=== PATIENT | male | born 1995 | race African-American/Black ===

== ENCOUNTER 2017-12-02 02:43 | Emergency (ER) | payer OTHER ==
[~2017-12-02] VITALS: Ht 177.8 cm; Wt 102.0 kg
[~2017-12-02 02:43] MED LIST: OXYC-360 PO
[2017-12-02 02:50] VITALS: BP 163/70; PULSE 92; RESP 18; TEMP 99.1
[2017-12-02] MEDS ORDERED: PANT20TA2 PO (04:52)
[2017-12-02] MEDS ORDERED: OMEP10CA PO (04:52)
[2017-12-02] MEDS ORDERED: SODIUM CHLOR 0.9% 1000 ML INJ 1,000 ML IV SCH (06:52)
[2017-12-02] MEDS ORDERED: METOCLOPRAMIDE HCL 10 MG/2 ML VIAL IV PUSH ONE (07:00)
[2017-12-02] MEDS ORDERED: PANTOPRAZOLE SODIUM 40 MG VIAL IVP ONE (07:00)
[2017-12-02] MEDS ORDERED: SODIUM CHLORIDE 0.9% FLUSH 10 ML FLUSH IV FLUSH PRN (07:00)
--- NOTE | 2017-12-02 07:21 | PD ---
HPI Chief Complaint: Abdominal Pain Time Seen by Provider: 06:52 Travel History International Travel<30 days: No Contact w/Intl Traveler<30days: No Traveled to known affect area: No History of Present Illness HPI 22-year-old male presents to the emergency department for complaint of generalized abdominal pain. Patient has history of GERD. Patient did take his proton pump inhibitor prior to arrival to the emergency department. Patient had nausea without vomiting. Patient has had constipation and no diarrhea. Patient denies any dietary indiscretion well water ingestion or foreign travel. Patient had some anorexia. Patient denies fever chills. Patient had no hematemesis coffee-ground emesis or melena or hematochezia. Patient states symptoms and present for approximately 4 hours. Patient states pain at onset was 10/10 in intensity. Currently pain is 4/10 in intensity. Patient denies previous similar symptoms. Patient denies other medical conditions. Patient denies having diabetes or asthma. No abdominal surgeries in the past patient is unable to identify exacerbating or alleviating factors. [facility] Past Medical History Narrative Medical GERD, HTN, tonsillectomy; nursing notes reviewed Medical History: Denies Significant Hx Cancer: No Developmental Delay: No Diabetes: No Glaucoma: No Hepatitis: No Hiatal Hernia: No Hypertension: Yes (1 YEAR AGO EPISODES IF HTN) Immunizations Current: Yes Thyroid Disease: No Past Surgical History Pacemaker: No Tonsillectomy: Yes Social History Alcohol Use: No Tobacco Use: No Substance Use: No Allergies-Medications (Allergen,Severity, Reaction): Coded Allergies: No Known Allergies (Verified Adverse Reaction, Unknown, 12/02/17) Reported Meds & Prescriptions Reported Meds & Active Scripts Active Reported Omeprazole 10 Mg Cap 10 Mg PO DAILY Pantoprazole (Pantoprazole Sodium) 20 Mg Tab 20 Mg PO DAILY Review of Systems Except as stated in HPI: all other systems reviewed are Neg General / Constitutional: No: Fever, Chills HENT: No: Congestion Cardiovascular: No: Chest Pain or Discomfort Respiratory: No: Shortness of Breath Gastrointestinal: Positive: Nausea, Abdominal Pain, Constipation, Loss of Appetite, No: Vomiting, Diarrhea Genitourinary: No: Frequency, Dysuria, Flank Pain Musculoskeletal: No: Myalgias, Arthralgias Skin: No Rash Neurologic: No: Weakness, Dizziness Psychiatric: No: Anxiety Hematologic/Lymphatic: No: Lymph Node Enlargement Physical Exam Narrative GENERAL: Well-developed well-nourished male no acute distress no respiratory distress SKIN: Warm and dry. HEAD: Normocephalic. EYES: No scleral icterus. No injection or drainage. NECK: Supple, trachea midline. No JVD or lymphadenopathy. CARDIOVASCULAR: Regular rate and rhythm without murmurs, gallops, or rubs. RESPIRATORY: Breath sounds equal bilaterally. No accessory muscle use. GASTROINTESTINAL: Abdomen soft, non-tender, nondistended. Soft nondistended no guarding no rebound; rectal exam deferred MUSCULOSKELETAL: No cyanosis, or edema. BACK: Nontender without obvious deformity. No CVA tenderness. Data Data Last Documented VS Vital Signs Date Time Temp Pulse Resp B/P (MAP) Pulse Ox O2 Delivery O2 Flow Rate FiO2 12/02/17 07:40 71 16 118/68 (85) 98 Room Air 12/02/17 02:50 99.1 Orders Orders Complete Blood Count With Diff (12/02/17 06:52) Comprehensive Metabolic Panel (12/02/17 06:52) Lipase (12/02/17 06:52) Urinalysis - C+S If Indicated (12/02/17 06:52) Abdomen, Flat & Upright (12/02/17 ) Iv Access Insert/Monitor (12/02/17 06:52) Ecg Monitoring (12/02/17 06:52) Oximetry (12/02/17 06:52) Pantoprazole Inj (Protonix Inj) (12/02/17 07:00) Sodium Chlor 0.9% 1000 Ml Inj (Ns 1000 M (12/02/17 06:52) Sodium Chloride 0.9% Flush (Ns Flush) (12/02/17 07:00) Metoclopramide Inj (Reglan Inj) (12/02/17 07:00) Hepatitis Profile (12/02/17 08:43) Labs Laboratory Tests Test 12/02/17 07:35 White Blood Count 7.2 TH/MM3 Red Blood Count 4.93 MIL/MM3 Hemoglobin 13.1 GM/DL Hematocrit 40.2 % Mean Corpuscular Volume 81.7 FL Mean Corpuscular Hemoglobin 26.6 PG Mean Corpuscular Hemoglobin Concent 32.6 % Red Cell Distribution Width 14.2 % Platelet Count 239 TH/MM3 Mean Platelet Volume 9.3 FL Neutrophils (%) (Auto) 83.7 % Lymphocytes (%) (Auto) 7.5 % Monocytes (%) (Auto) 7.8 % Eosinophils (%) (Auto) 0.6 % Basophils (%) (Auto) 0.4 % Neutrophils # (Auto) 6.0 TH/MM3 Lymphocytes # (Auto) 0.5 TH/MM3 Monocytes # (Auto) 0.6 TH/MM3 Eosinophils # (Auto) 0.0 TH/MM3 Basophils # (Auto) 0.0 TH/MM3 CBC Comment DIFF FINAL Differential Comment Urine Color YELLOW Urine Turbidity CLEAR Urine pH 6.5 Urine Specific [place] 1.011 Urine Protein NEG mg/dL Urine Glucose (UA) NEG mg/dL Urine Ketones NEG mg/dL Urine Occult Blood NEG Urine Nitrite NEG Urine Bilirubin NEG Urine Urobilinogen LESS THAN 2.0 MG/DL Urine Leukocyte Esterase NEG Urine RBC LESS THAN 1 /hpf Urine Mucus FEW /lpf Microscopic Urinalysis Comment CULT NOT INDICATED Blood Urea Nitrogen 20 MG/DL Creatinine 1.14 MG/DL Random Glucose 94 MG/DL Total Protein 8.3 GM/DL Albumin 4.0 GM/DL Calcium Level 9.3 MG/DL Alkaline Phosphatase 62 U/L Aspartate Amino Transf (AST/SGOT) 1142 U/L Alanine Aminotransferase (ALT/SGPT) 728 U/L Total Bilirubin 0.9 MG/DL Sodium Level 138 MEQ/L Potassium Level 3.7 MEQ/L Chloride Level 102 MEQ/L Carbon Dioxide Level 23.7 MEQ/L Anion Gap 12 MEQ/L Lipase 134 U/L MDM Medical Decision Making Medical Screen Exam Complete: Yes Emergency Medical Condition: Yes Medical Record Reviewed: Yes Interpretation(s) Last Impressions Abdomen X-Ray 12/02/17 0000 Signed Impressions: CONCLUSION: Large stool burden. Otherwise unremarkable exam. CBC & BMP Diagram 12/02/17 07:35 Total Protein 8.3 H, Albumin 4.0, Calcium Level 9.3, Alkaline Phosphatase 62, Aspartate Amino Transf (AST/SGOT) 1142 H, Alanine Aminotransferase (ALT/SGPT) 728 H, Total Bilirubin 0.9 Vital Signs Date Time Temp Pulse Resp B/P (MAP) Pulse Ox O2 Delivery O2 Flow Rate FiO2 12/02/17 07:40 71 16 118/68 (85) 98 Room Air 12/02/17 07:39 98 Room Air 6/3/18 02:50 99.1 92 18 163/70 (101) Differential Diagnosis Abdominal pain, gastroenteritis, peptic ulcer disease, gastritis, biliary colic , cholecystitis, atypical appendicitis, UTI, constipation Narrative Course IV access obtained specimens collections of resulting abdominal flat and upright x-ray obtained; patient administered Reglan 10 mg IV and Protonix 40 mg IV along with 1 L normal saline bolus Patient resting comfortably after IV fluids Reglan and Protonix Lab values resulted and patient identified to have elevated transaminases Flat and upright abdomen shows no obstructive pattern large amount of stool Discussed with patient observation admission regarding transaminase elevation and patient now relates that he actually has been having elevated liver enzymes are being monitored by his primary care provider and feels well voicing no concerns or complaints and no pain at this time. In view of his pre-existing knowledge of elevated liver enzymes and he assures me that he has not been using or abusing acetaminophen I think he is safe to discharge to home at this time on a clear liquid diet no work 2 days and 1 day follow-up with his primary care provider or [facility] urgent care. Patient is amenable to this and states he has no difficulty getting into see his primary care provider Dr. Muse. This is also been discussed with on-call [facility] physician who will leave note for patient's primary care provider to look towards following of his abnormal LFTs. Diagnosis Primary Impression: Intestinal colic Additional Impression: Transaminitis Referrals: Primary Care Physician 1 day Patient Instructions: General Instructions Departure Forms: Tests/Procedures, Work Release Special Instructions: no work x 2 days Additional Instructions: Follow clear liquid diet for next 12-24 hours advance as tolerated to bland diet Take Zofran as prescribed as needed for nausea and/or vomiting Take Carafate for abdominal pain along with your Proton per prescription directions Monitor temperature every 4 hours with thermometry take ibuprofen/Advil/Motrin for fever 100.4F or greater next take acetaminophen/Tylenol Follow-up with your primary care provider call office in a.m. to schedule follow -up 1 day No work 2 days Return the emergency department for pain fever vomiting or any concern Med/Other Pt SpecificInfo: Prescription(s) given Scripts Sucralfate Liq (Carafate Liq) 1 Gm/10 Ml Susp 1 GM PO QID for Duodenal ulcer for 7 Days, ML 0 Refills on empty stomach Prov: Kirti Cruz MD 12/02/17 Ondansetron Odt (Zofran Odt) 4 Mg Tab 4 MG SL Q6HR Y for Nausea/Vomiting, #10 TAB 0 Refills Prov: Kirti Cruz MD 12/02/17 Disposition: 01 DISCHARGE HOME Condition: Stable Kirti Cruz MD Dec 02, 2017 07:21
--- NOTE | 2017-12-02 07:26 | RADRPT ---
EXAM DATE: 12/02/2017 7:19 AM EDT AGE/SEX: 22 years / Male INDICATIONS: Abdomen pain CLINICAL DATA: This is the patient's initial encounter. Patient reports that signs and symptoms have been present for 1 day and indicates a pain score of 7/10. MEDICAL/SURGICAL HISTORY: . Acid reflux None. COMPARISON: [facility], CT ABDOMEN AND PELVIS W/ CONTRAST, 07/06/2016. . FINDINGS: Supine and upright views of the abdomen were performed. The abdominal bowel gas pattern is normal. No air-fluid levels are seen. No abnormal masses, calcifications, or organomegaly is seen. The visualiz ed lower lungs are clear. No evidence of free intraperitoneal gas. The osseous structures are unremar kable. CONCLUSION: Large stool burden. Otherwise unremarkable exam. Electronically signed by: Adalgisa Crespo MD 12/02/2017 7:24 AM EDT
[2017-12-02 07:39] VITALS: O2SAT 98
[2017-12-02 07:40] VITALS: BP 118/68; PULSE 71; RESP 16; O2SAT 98
[2017-12-02 08:11] LABS: BASOPHIL % 0.4 % (0.0-2.0); EOSINOPHIL % 0.6 % (0.0-4.0); HEMATOCRIT 40.2 % (39.0-51.0); HEMOGLOBIN 13.1 GM/DL (13.0-17.0); LYMPH % 7.5 % (9.0-44.0); LYMPHOCYTE # 0.5 TH/MM3 (1.0-4.8); MEAN CELL VOLUME 81.7 FL (80.0-100.0); MEAN CORPUSCULAR HEMOGLOBIN 26.6 PG (27.0-34.0); MEAN CORPUSCULAR HGB CONC 32.6 % (32.0-36.0); MEAN PLATELET VOLUME 9.3 FL (7.0-11.0); MONO % 7.8 % (0.0-8.0); MONOCYTE # 0.6 TH/MM3 (0-0.9); NEUT % 83.7 % (16.0-70.0); PLATELET COUNT 239 TH/MM3 (150-450); RED BLOOD COUNT 4.93 MIL/MM3 (4.50-5.90); RED CELL DISTRIBUTION WIDTH 14.2 % (11.6-17.2); WHITE BLOOD COUNT 7.2 TH/MM3 (4.0-11.0)
[2017-12-02 08:15] LABS: BILIRUBIN, URINE NEG (NEG); BLOOD, URINE NEG (NEG); GLUCOSE,URINE NEG (NEG); KETONE, URINE NEG (NEG); MUCUS URINE FEW /lpf (OCC); NITRITE,URINE NEG (NEG); PH, URINE 6.5 (5.0-8.5); URINE COLOR YELLOW (YELLW/STRAW); URINE LEUKOCYTE ESTERASE NEG (NEG)
[2017-12-02 08:27] LABS: ALT (GPT) 728 U/L (12-78); BICARBONATE 23.7 MEQ/L (21.0-32.0); BLOOD UREA NITROGEN 20 MG/DL (7-18); CALCIUM 9.3 MG/DL (8.5-10.1); CHLORIDE 102 MEQ/L (98-107); CREATININE 1.14 MG/DL (0.60-1.30); GLUCOSE,RANDOM 94 MG/DL (74-106); SODIUM (NA) 138 MEQ/L (136-145)
[2017-12-02 08:33] LABS: ALKALINE PHOSPHATASE 62 U/L (45-117); AST (GOT) 1142 U/L (15-37); TOTAL BILIRUBIN ADULT 0.9 MG/DL (0.2-1.0); TOTAL PROTEIN 8.3 GM/DL (6.4-8.2)
[2017-12-02] MEDS ORDERED: CARA1SUS3 PO (08:55)
[2017-12-02] MEDS ORDERED: ZOFR4TAB3 SL (08:55)
== END 2017-12-02 09:30 | disposition home or self-care (01) ==
LOC: NEPC 02:43
DX: R10.84 Generalized abdominal pain (principal); R74.0 Nonspecific elevation of levels of transaminase and lactic acid dehydrogenase [LDH]; K21.9 Gastro-esophageal reflux disease without esophagitis; I10 Essential (primary) hypertension; Z79.899 Other long term (current) drug therapy
CPT/HCPCS: 74019; 80053; 80074; 81001; 83690; 85025; 96374; 96375; 99284; C9113; J2765; J7030